=== PATIENT | male | born 1955 | race Caucasian/White ===

== ENCOUNTER → 2022-06-04 | Outpatient (CLI) | payer MEDICARE, OTHER | LOC: SLEEPLAB 19:00 | PROVIDERS: ATTEND Internal Medicine Cardiovascular Disease | DX: G47.33 Obstructive sleep apnea (adult) (pediatric) (principal); F51.9 Sleep disorder not due to a substance or known physiological condition, unspecified; R40.0 Somnolence; I10 Essential (primary) hypertension | CPT/HCPCS: 95811 ==